=== PATIENT | female | born 2000 | race Caucasian/White ===

== ENCOUNTER 2019-06-16 23:10 | Emergency (ER) | payer OTHER ==
[2019-06-16] MEDS ORDERED: METOCLOPRAMIDE HCL INJ/PF 10 MG/2 ML SDV IV ONE (23:55)
[2019-06-16] MEDS ORDERED: NORMAL SALINE 1000 ML 1,000 ML IV ONE (23:55)
--- NOTE | 2019-06-16 23:57 | ER Document Report ---
ED General - General Chief Complaint: Vomiting Stated Complaint: VOMITING Time Seen by Provider: 06/16/19 23:31 Primary Care Provider: MAUREEN PUENTES PA-C [Primary Care Provider] - Follow up as needed Mode of Arrival: Ambulatory Information source: Patient - [facility] Notes: Patient presents with complaint of vomiting. She states this is been going on for approximately 1 week. She states she is nauseous and vomiting throughout most of the day. She states she is approximately 5 weeks . She has had no obstetric care for this yet. This is her first . She had some abdominal cramping as well. The cramping is mild to moderate. It is across the abdomen. It does radiate to her low back. She has had no dysuria urgency or frequency. Nothing makes the cramping better or worse. - Related Data Allergies/Adverse Reactions: No Known Allergies Allergy (Verified 06/16/19 23:25) Past Medical History - General Information source: Patient - Social History Smoking Status: Never Smoker Chew tobacco use (# tins/day): No Frequency of alcohol use: None Drug Abuse: None Family History: Reviewed & Not Pertinent Patient has suicidal ideation: No Patient has homicidal ideation: No Review of Systems - Review of Systems Constitutional: denies: Malaise, Weakness Cardiovascular: denies: Chest pain, Palpitations Respiratory: denies: Cough, Short of breath Gastrointestinal: Abdominal pain, Vomiting -: Yes All other systems reviewed and negative Physical Exam - Vital signs Vitals: Temp Pulse Resp BP Pulse Ox 97.4 F 91 H 14 132/78 H 100 06/16/19 23:13 06/16/19 23:13 06/16/19 23:13 06/16/19 23:13 06/16/19 23:13 Interpretation: Normal - General General appearance: Appears well, Alert - HEENT Head: Normocephalic, Atraumatic Eyes: Normal Pupils: PERRL - Respiratory Respiratory status: No respiratory distress Chest status: Nontender Breath sounds: Normal Chest palpation: Normal - Cardiovascular Rhythm: Regular Heart sounds: Normal auscultation Murmur: No - Abdominal Inspection: Normal Distension: No distension Bowel sounds: Normal Tenderness: Nontender Organomegaly: No organomegaly - Back Back: Normal, Nontender - Extremities General upper extremity: Normal inspection, Nontender, Normal color, Normal ROM, Normal temperature General lower extremity: Normal inspection, Nontender, Normal color, Normal ROM, Normal temperature, Normal weight bearing. No: Oscar's sign - Neurological Neuro grossly intact: Yes Cognition: Normal Orientation: AAOx4 Génesis Coma Scale Eye Opening: Spontaneous [place] Coma Scale Verbal: Oriented Génesis Coma Scale Motor: Obeys Commands Génesis Coma Scale Total: 15 Speech: Normal Motor strength normal: LUE, RUE, LLE, RLE Sensory: Normal - Psychological Associated symptoms: Normal affect, Normal mood - Skin Skin Temperature: Warm Skin Moisture: Dry Skin Color: Normal Course - Re-evaluation Re-evalutation: 06/17/19 01:29 Patient reevaluated just now. She is feeling better. No significant abdominal pain. Vital signs are normal. She does have a mild amount of bacteria in her urine so she will be treated with Macrobid. - Vital Signs Vital signs: Temp Pulse Resp BP Pulse Ox 97.4 F 91 H 14 132/78 H 100 06/16/19 23:13 06/16/19 23:13 06/16/19 23:13 06/16/19 23:13 06/16/19 23:13 - Laboratory Result Diagrams: 06/17/19 00:08 06/17/19 00:08 Laboratory results interpreted by me: 06/16/19 06/17/19 23:30 00:08 Sodium 136.4 L Beta HCG, Quant 60328.00 H Urine Ketones 20 H Ur Leukocyte Esterase TRACE H Laboratory 06/16/19 06/17/19 06/17/19 23:30 00:08 00:08 WBC 10.1 RBC 5.03 Hgb 14.9 Hct 44.1 MCV 88 MCH 29.6 MCHC 33.8 RDW 12.8 Plt Count 228 Lymph % (Auto) 15.5 [place] % (Auto) 6.7 Eos % (Auto) 0.3 Baso % (Auto) 0.4 Absolute Neuts (auto) 7.8 Absolute Lymphs (auto) 1.6 Absolute Monos (auto) 0.7 Absolute Eos (auto) 0.0 Absolute Basos (auto) 0.0 Seg Neutrophils % 77.1 Sodium 136.4 L Potassium 3.9 Chloride 101 Carbon Dioxide 24 Anion Gap 11 BUN 7 Creatinine 0.61 Est GFR ( Amer) > 60 Est GFR (MDRD) Non-Af > 60 Glucose 88 Calcium 10.1 Total Bilirubin 0.7 Direct Bilirubin 0.1 Neonat Total Bilirubin Not Reportable Neonat Direct Bilirubin Not Reportable Neonat Indirect Bili Not Reportable AST 20 ALT 16 Alkaline Phosphatase 52 Total Protein 7.4 Albumin 4.7 Beta HCG, Quant 87476.00 H Total Beta HCG POSITIVE Urine Color YELLOW Urine Appearance SLIGHTLY-CLOUDY Urine pH 6.0 Ur Specific [place] 1.012 Urine Protein NEGATIVE Urine Glucose (UA) NEGATIVE Urine Ketones 20 H Urine Blood NEGATIVE Urine Nitrite NEGATIVE Urine Bilirubin NEGATIVE Urine Urobilinogen NEGATIVE Ur Leukocyte Esterase TRACE H Urine WBC (Auto) 7 Urine RBC (Auto) 4 U Hyaline Cast (Auto) 1 Urine Bacteria (Auto) 3+ Squamous Epi Cells Auto 4 Urine Mucus (Auto) FEW Urine Ascorbic Acid NEGATIVE - Diagnostic Test Radiology reviewed: Image reviewed, Reports reviewed Radiology results interpreted by me: 06/17/19 01:29 Obstetrics Ultrasound 06/16/19 23:55 IMPRESSION: Early intrauterine gestation, with estimated date of delivery of 02/06/2020. Discharge - Discharge Clinical Impression: Hyperemesis gravidarum Condition: Stable Disposition: HOME, SELF-CARE Instructions: Reglan ([facility]), Vomiting ([facility]), Intravenous (IV) Fluids ([facility]), Hyperemesis Gravidarum ([facility]) Additional Instructions: Please call your board stacker as soon as possible to arrange follow-up Prescriptions: Metoclopramide HCl [Reglan 10 mg Tablet] 1 tab PO Q6 #25 tablet Referrals: MAUREEN PUENTES PA-C [Primary Care Provider] - Follow up as needed
[2019-06-17 00:21] LABS: APPEARANCE,URINE SLIGHTLY-CLOUDY; BILIRUBIN,URINE NEGATIVE (NEGATIVE); COLOR,URINE YELLOW; GLUCOSE, URINE NEGATIVE (NEGATIVE); KETONES,URINE 20 mg/dL (NEGATIVE); LEUKOCYTE ESTERASE,URINE TRACE (NEGATIVE); NITRITE,URINE NEGATIVE (NEGATIVE); PROTEIN,URINE NEGATIVE (NEGATIVE); URINE SPECIFIC GRAVITY 1.012; UROBILINOGEN,URINE NEGATIVE mg/dL (<2.0)
[2019-06-17 00:24] LABS: ABSOLUTE LYMPHOCYTES (AUTO) 1.6 10^3/uL (0.5-4.7); ABSOLUTE MONOCYTES (AUTO) 0.7 10^3/uL (0.1-1.4); ABSOLUTE NEUT (AUTO) 7.8 10^3/uL (1.7-8.2); BASOPHILS % (AUTO) 0.4 % (0-2); EOSINOPHILS % (AUTO) 0.3 % (0-6); HEMATOCRIT 44.1 % (36.0-47.0); HEMOGLOBIN 14.9 g/dL (12.0-15.5); LYMPHOCYTES % (AUTO) 15.5 % (13-45); MEAN CORPUSCULAR HEMOGLOBIN 29.6 pg (27.0-33.4); MEAN CORPUSCULAR HGB CONC 33.8 g/dL (32.0-36.0); MEAN CORPUSCULAR VOLUME 88 fl (80-97); MONOCYTES % (AUTO) 6.7 % (3-13); PLATELET COUNT 228 10^3/uL (150-450); RED BLOOD COUNT 5.03 10^6/uL (3.72-5.28); RED CELL DISTRIBUTION WIDTH 12.8 % (11.5-14.0); SEGMENTED NEUTROPHILS % (AUTO) 77.1 % (42-78); TOTAL CELLS COUNTED % (AUTO) 100 %; WHITE BLOOD COUNT 10.1 10^3/uL (4.0-10.5)
[2019-06-17 00:42] LABS: ALBUMIN 4.7 g/dL (3.7-5.6); ALKALINE PHOSPHATASE 52 U/L (50-135); ANION GAP 11 (5-19); ASPARTATE AMINO TRANSFERASE 20 U/L (5-30); BILIRUBIN,DIRECT 0.1 mg/dL (0.0-0.4); BILIRUBIN,TOTAL 0.7 mg/dL (0.2-1.3); BLOOD UREA NITROGEN 7 mg/dL (7-20); CALCIUM 10.1 mg/dL (8.4-10.2); CARBON DIOXIDE 24 mmol/L (22-30); CHLORIDE 101 mmol/L (98-107); GLUCOSE 88 mg/dL (75-110); POTASSIUM 3.9 mmol/L (3.6-5.0); TOTAL PROTEIN 7.4 g/dL (6.3-8.2)
--- NOTE | 2019-06-17 01:15 | RADIOLOGY REPORT (SQ) ---
CLINICAL HISTORY: preg/pain COMPARISON: None. TECHNIQUE: US TRANSVAGINAL on 06/16/2019 11:55 PM CDT FINDINGS: Uterus measures 8.0 cm and contains a gestational sac with a pole measuring 7 mm corresponding to six weeks four days. heart rate is 130 bpm. Cervical length is 2.8 cm. Ovaries are unremarkable with patent flow. IMPRESSION: Early intrauterine gestation, with estimated date of delivery of 02/06/2020.
[2019-06-17 01:51] VITALS: BP 116/58
== END 2019-06-17 01:52 | disposition home or self-care (01) ==
LOC: ER 23:10
DX: O21.0 Mild hyperemesis gravidarum (principal); O26.891 Other specified pregnancy related conditions, first trimester; R10.9 Unspecified abdominal pain; Z3A.01 Less than 8 weeks gestation of pregnancy
CPT/HCPCS: 99284; 96361; 96374; 36415; 84702; 85025; 80053; 81001; 76817; J2765; J7030

== ENCOUNTER 2019-06-19 14:39 | Emergency (ER) | payer OTHER ==
[2019-06-19] MEDS ORDERED: NORMAL SALINE 1000 ML 1,000 ML IV ONE (15:10)
[2019-06-19] MEDS ORDERED: METOCLOPRAMIDE HCL INJ/PF 10 MG/2 ML SDV IV ONE (15:11)
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
[2019-06-19 16:00] LABS: ABSOLUTE LYMPHOCYTES (AUTO) 1.9 10^3/uL (0.5-4.7); ABSOLUTE MONOCYTES (AUTO) 0.9 10^3/uL (0.1-1.4); ABSOLUTE NEUT (AUTO) 8.6 10^3/uL (1.7-8.2); BASOPHILS % (AUTO) 0.3 % (0-2); EOSINOPHILS % (AUTO) 0.3 % (0-6); HEMATOCRIT 43.3 % (36.0-47.0); HEMOGLOBIN 14.8 g/dL (12.0-15.5); LYMPHOCYTES % (AUTO) 16.6 % (13-45); MEAN CORPUSCULAR HEMOGLOBIN 29.8 pg (27.0-33.4); MEAN CORPUSCULAR HGB CONC 34.1 g/dL (32.0-36.0); MEAN CORPUSCULAR VOLUME 87 fl (80-97); MONOCYTES % (AUTO) 7.5 % (3-13); PLATELET COUNT 240 10^3/uL (150-450); RED BLOOD COUNT 4.95 10^6/uL (3.72-5.28); SEGMENTED NEUTROPHILS % (AUTO) 75.3 % (42-78); TOTAL CELLS COUNTED % (AUTO) 100 %; WHITE BLOOD COUNT 11.3 10^3/uL (4.0-10.5)
[2019-06-19 16:04] LABS: BACTERIA (WET MOUNT) 3+ BACTERIA SEEN; RBCS (WET MOUNT) RARE RBCS SEEN; T.VAGINALIS (WET MOUNT) NO TRICHOMONAS SEEN; WBCS (WET MOUNT) 2+ WBCS SEEN; YEAST (WET MOUNT) NO YEAST SEEN
[2019-06-19 16:14] LABS: ALBUMIN 4.8 g/dL (3.7-5.6); ALKALINE PHOSPHATASE 52 U/L (50-135); ANION GAP 16 (5-19); ASPARTATE AMINO TRANSFERASE 22 U/L (5-30); BILIRUBIN,DIRECT 0.1 mg/dL (0.0-0.4); BLOOD UREA NITROGEN 6 mg/dL (7-20); CARBON DIOXIDE 21 mmol/L (22-30); CHLORIDE 100 mmol/L (98-107); GLUCOSE 80 mg/dL (75-110); POTASSIUM 3.9 mmol/L (3.6-5.0); TOTAL PROTEIN 7.6 g/dL (6.3-8.2)
[2019-06-19] MEDS ORDERED: CEFTRIAXONE INJ 250 MG VIAL IV ONE (17:08)
[2019-06-19 17:45] LABS: CHLAM PCR NOT DETECTED (NOT DETECT)
[2019-06-19 17:59] LABS: APPEARANCE,URINE SLIGHTLY-CLOUDY; BILIRUBIN,URINE NEGATIVE (NEGATIVE); GLUCOSE, URINE NEGATIVE (NEGATIVE); KETONES,URINE 80 mg/dL (NEGATIVE); LEUKOCYTE ESTERASE,URINE NEGATIVE (NEGATIVE); NITRITE,URINE NEGATIVE (NEGATIVE); PROTEIN,URINE 100 mg/dL (NEGATIVE); URINE SPECIFIC GRAVITY 1.032; UROBILINOGEN,URINE NEGATIVE mg/dL (<2.0)
[2019-06-19 18:00] LABS: COLOR,URINE DARK YELLOW
[2019-06-19] MEDS ORDERED: METRONIDAZOLE 0.75% PV ONE (18:04)
[2019-06-19 18:26] VITALS: BP 121/62
[2019-06-19] MEDS ORDERED: METRONIDAZOLE 0.75% PV SCH (22:00)
== END 2019-06-19 18:33 | disposition home or self-care (01) ==
LOC: ER 14:39
DX: O23.591 Infection of other part of genital tract in pregnancy, first trimester (principal); B96.89 Other specified bacterial agents as the cause of diseases classified elsewhere; O21.0 Mild hyperemesis gravidarum; Z3A.01 Less than 8 weeks gestation of pregnancy
CPT/HCPCS: 99283; 96361; 96375; 96365; 36415; 87210; 84702; 84703; 85025; 80053; 81001; 87491; 87591; J3490; J2765; J7030; J0696

== ENCOUNTER 2020-03-14 18:00 | Emergency (ER) | payer OTHER ==
--- NOTE | 2020-03-14 18:15 | ER Document Report ---
ED Medical Screen (RME) - General Chief Complaint: Vaginal Bleeding Stated Complaint: VAGINAL BLEEDING/POST Time Seen by Provider: 03/14/20 18:11 Primary Care Provider: MAUREEN PUENTES PA-C [Primary Care Provider] - Follow up as needed Mode of Arrival: Ambulatory Information source: Patient Notes: Otherwise healthy 19-year-old female presents to the emergency department chief complaint of dizziness, feeling faint and also vaginal bleeding. Patient reports she is approximately 5 weeks . She had a normal vaginal delivery. She states her bleeding stopped around week 3. She states bleeding started again a few days ago. She also reports one of her sutures came out and they were supposed to be dissolvable. Patient has not had her visit yet, it is scheduled for tomorrow via telemedicine. She reports the bleeding is heavier than when she was however she states she is not filling up pads quickly I have greeted and performed a rapid initial assessment of this patient. A comprehensive ED assessment and evaluation of the patient, analysis of test results and completion of the medical decision making process will be conducted by additional ED providers. I have specifically instructed the patient or family members with the patient to immediately return to any nursing staff should anything change in the patient's condition or with their chief complaint. - Related Data Allergies/Adverse Reactions: No Known Allergies Allergy (Verified 06/19/19 14:41) Physical Exam - Vital signs Vitals: Temp Pulse Resp BP Pulse Ox 98.1 F 78 16 135/87 H 96 03/14/20 18:05 03/14/20 18:05 03/14/20 18:05 03/14/20 18:05 03/14/20 18:05 Course - Vital Signs Vital signs: Temp Pulse Resp BP Pulse Ox 98.1 F 78 16 135/87 H 96 03/14/20 18:05 03/14/20 18:05 03/14/20 18:05 03/14/20 18:05 03/14/20 18:05 Doctor's Discharge - Discharge Referrals: MAUREEN PUENTES PA-C [Primary Care Provider] - Follow up as needed
[2020-03-14 19:00] LABS: ABSOLUTE EOSINOPHILS # (AUTO) 0.1 10^3/uL (0.0-0.6); ABSOLUTE LYMPHOCYTES (AUTO) 2.5 10^3/uL (0.5-4.7); ABSOLUTE MONOCYTES (AUTO) 0.5 10^3/uL (0.1-1.4); ABSOLUTE NEUT (AUTO) 3.9 10^3/uL (1.7-8.2); BASOPHILS % (AUTO) 0.5 % (0-2); EOSINOPHILS % (AUTO) 1.3 % (0-6); HEMATOCRIT 44.7 % (36.0-47.0); LYMPHOCYTES % (AUTO) 35.7 % (13-45); MEAN CORPUSCULAR HEMOGLOBIN 29.8 pg (27.0-33.4); MEAN CORPUSCULAR HGB CONC 33.6 g/dL (32.0-36.0); MEAN CORPUSCULAR VOLUME 89 fl (80-97); MONOCYTES % (AUTO) 7.7 % (3-13); PLATELET COUNT 219 10^3/uL (150-450); RED BLOOD COUNT 5.04 10^6/uL (3.72-5.28); RED CELL DISTRIBUTION WIDTH 12.6 % (11.5-14.0); SEGMENTED NEUTROPHILS % (AUTO) 54.8 % (42-78); TOTAL CELLS COUNTED % (AUTO) 100 %
[2020-03-14 19:08] LABS: APPEARANCE,URINE CLEAR; BILIRUBIN,URINE NEGATIVE (NEGATIVE); COLOR,URINE YELLOW; GLUCOSE, URINE NEGATIVE (NEGATIVE); KETONES,URINE NEGATIVE (NEGATIVE); LEUKOCYTE ESTERASE,URINE LARGE (NEGATIVE); NITRITE,URINE NEGATIVE (NEGATIVE); PROTEIN,URINE 30 mg/dL (NEGATIVE); URINE SPECIFIC GRAVITY 1.012; UROBILINOGEN,URINE NEGATIVE mg/dL (<2.0)
[2020-03-14 19:29] LABS: ALBUMIN 4.3 g/dL (3.5-5.0); ALKALINE PHOSPHATASE 101 U/L (38-126); ANION GAP 7 (5-19); ASPARTATE AMINO TRANSFERASE 33 U/L (14-36); BILIRUBIN,TOTAL 0.6 mg/dL (0.2-1.3); BLOOD UREA NITROGEN 10 mg/dL (7-20); CALCIUM 9.2 mg/dL (8.4-10.2); CARBON DIOXIDE 27 mmol/L (22-30); CHLORIDE 103 mmol/L (98-107); GLUCOSE 96 mg/dL (75-110); POTASSIUM 4.2 mmol/L (3.6-5.0); TOTAL PROTEIN 7.1 g/dL (6.3-8.2)
--- NOTE | 2020-03-14 19:53 | ER Document Report ---
ED General - General Chief Complaint: Vaginal Bleeding Stated Complaint: VAGINAL BLEEDING/POST Time Seen by Provider: 03/14/20 18:11 Primary Care Provider: MAUREEN PUENTES PA-C [Primary Care Provider] - Follow up as needed Mode of Arrival: Ambulatory Notes: 19 year old female who is 5 weeks presents to the ED complaining of vaginal bleeding that restarted yesterday associated with having visualized a stitch falling out of her vagina onto the toilet paper. Patient's bleeding had stopped at 3 weeks , it just restarted yesterday. States that she is going through less than 1 pad per hour. Patient is also concerned because she developed a severe headache today associated with dizziness on standing and walking. Headache does not change with acetaminophen. Denies any history of -induced hypertension or preeclampsia. - Related Data Allergies/Adverse Reactions: No Known Allergies Allergy (Verified 06/19/19 14:41) Home Medications: vitamins Past Medical History - General Information source: Patient - Social History Smoking Status: Never Smoker Chew tobacco use (# tins/day): No Frequency of alcohol use: None Drug Abuse: None Family History: Reviewed & Not Pertinent Patient has homicidal ideation: No Review of Systems - Review of Systems Constitutional: No symptoms reported EENT: No symptoms reported Cardiovascular: See HPI, Dizziness, Lightheaded. denies: Chest pain Respiratory: No symptoms reported Gastrointestinal: No symptoms reported Female Genitourinary: See HPI Neurological/Psychological: See HPI, Headaches -: Yes All other systems reviewed and negative Physical Exam - Vital signs Vitals: Temp Pulse Resp BP Pulse Ox 98.1 F 78 16 135/87 H 96 03/14/20 18:05 03/14/20 18:05 03/14/20 18:05 03/14/20 18:05 03/14/20 18:05 Interpretation: Normal - Notes Notes: GENERAL: Alert, interacts well. No acute distress. HEAD: Normocephalic, atraumatic EYES: Pupils equal, round and reactive to light, extraocular movements intact. ENT: Oral mucosa moist, tongue midline. NECK: Full range of motion, supple, trachea midline. LUNGS: Clear to auscultation bilaterally, no wheezes, rales or rhonchi, no respiratory distress. HEART: Regular rate and rhythm, no murmurs, gallops, rubs. ABDOMEN: Soft, nontender, nondistended, bowel sounds present in all 4 quadrants. EXTREMITIES: Moves all 4 extremities spontaneously, no edema, radial and dorsalis pedis pulses 2/4 bilaterally. No cyanosis. NEUROLOGICAL: Alert and oriented x3, normal speech, biceps and patellar DTRs 2+ bilaterally. PSYCH: Normal mood, normal affect. SKIN: Warm, Dry, normal turgor, no rashes or lesions noted. Course - Re-evaluation Re-evalutation: 03/14/20 19:56 CBC does not really only anemia, CMP shows normal LFTs, urinalysis shows large blood and leukocyte Estrace but I suspect this is contaminated with vaginal bleeding. Patient has no dysuria and no symptoms of urinary tract infection such as frequency. Doubt that the protein truly represents proteinuria, it is more likely to be protein showing up because of all the blood in the urine. Discussed with patient the possibility of doing a pelvic examination here versus waiting until tomorrow when she has a telehealth consult with the CORPORATE COMPLIANCE MANAGER's at [facility]. Patient would prefer not to have 2 pelvic exams in a row and would prefer to have the CORPORATE COMPLIANCE MANAGER's do it there if they can see her in person. As the patient is not anemic nor is she hypotensive and she is not bleeding through more than 1 pad per hour I see no reason that a pelvic examination must be performed this evening. Discussed case with Dr. Doe the CORPORATE COMPLIANCE MANAGER on-call for [facility] and he agreed that the patient could be seen in person tomorrow and that they would do the pelvic examination then if necessary. Patient is neurologically intact, dizziness appears to be orthostatic, patient is breast-feeding, encouraged patient to drink more fluids. No evidence of preeclampsia. - Vital Signs Vital signs: Temp Pulse Resp BP Pulse Ox 98.1 F 78 16 135/87 H 96 03/14/20 18:11 03/14/20 18:05 03/14/20 18:05 03/14/20 18:05 03/14/20 18:05 - Laboratory Result Diagrams: 03/14/20 18:45 03/14/20 18:45 Laboratory results interpreted by me: 03/14/20 18:45 Urine Protein 30 H Urine Blood LARGE H Ur Leukocyte Esterase LARGE H Discharge - Discharge Clinical Impression: hemorrhage of vagina, Headache in , Condition: Stable Disposition: HOME, SELF-CARE Additional Instructions: Please drink plenty of fluids. I suspect your dizziness is coming partially from dehydration. There is no evidence of life-threatening blood loss at this time. Please change positions slowly from sitting to standing and then when going from standing to walking. You may continue to take acetaminophen 1000 mg every 6 hours as needed for pain. Do not exceed 4000 mg (4 g) every 24 hours. You should go to the [facility] tomorrow at the time that you are scheduled to have your telehealth appointment and they will see you in person instead. I discussed this plan with Dr. Doe. I do suggest calling prior to your appointment just to reconfirm with them that you will be showing up for an in person appointment. Should you develop blurry vision, difficulty walking, numbness or tingling, bleeding through more than 2 pads per hour or any new or concerning symptoms please return to the emergency department. Referrals: MAUREEN PUENTES PA-C [Primary Care Provider] - Follow up as needed
[2020-03-14] MEDS ORDERED: KETOROLAC TROMETHAMINE 60 MG/2 ML SDV IM ONE (19:59)
[2020-03-14 20:20] VITALS: BP 121/82
== END 2020-03-14 20:42 | disposition home or self-care (01) ==
LOC: ER 18:00
DX: O72.2 Delayed and secondary postpartum hemorrhage (principal); O90.89 Other complications of the puerperium, not elsewhere classified; R51 Headache; R42 Dizziness and giddiness; R31.9 Hematuria, unspecified; Z79.899 Other long term (current) drug therapy
CPT/HCPCS: 99284; 96372; 36415; 85025; 80053; 81001; J1885